=== PATIENT | female | born 1980 | race Caucasian/White ===

== ENCOUNTER 2024-03-30 08:18 | Outpatient (AMB) | payer BC, SELFPAY ==
--- NOTE | 2024-03-30 08:40 | MHC.OFFWIV ---
Intake Vital Signs 03/30/24 08:41 Height 5 ft 5 in Weight 151 lb BMI 25.1 BP 102/80 Blood Pressure Location Rt brachial Position Sitting Pulse 76 Pulse Source Pulse Oximeter Temp 98.3 F Temp Source Oral Pulse Oximetry (%) 98 Oxygen Delivery Method Room Air Intake Visit Reasons: rt ear pain Intake Note: pt c/o RT ear pain. Started yesterday morning. Went swimming Wednesday Patient Tobacco Use Status: Never used Tobacco Allergies No Known Allergies Allergy (Verified 03/30/24 08:44) Do you need a note to return to daycare/school/sports/work: No HPI HPI Comments History of Present Illness Details Patient is a 43-year-old female complaining of right ear pain for the last 3 days. She states the pain radiates to her nondenominational and down to her jaw. She states she did go swimming 3 days ago and she thinks she has an infection. She denies any fevers or change in her hearing PFSH Social History Patient Tobacco Use Status: Never used Tobacco Review of Systems Const All systems reviewed & are unremarkable except as noted in HPI and below Physical Exam Vital Signs: Last Vital Signs Temp 98.3 F 03/30/24 08:41 Pulse 76 03/30/24 08:41 BP 102/80 03/30/24 08:41 Pulse Ox 98 03/30/24 08:41 Oxygen Delivery Method Room Air 03/30/24 08:41 BMI result Body Mass Index 25.1 Const General: cooperative, healthy appearing, comfortable and no acute distress Orientation/consciousness: patient oriented x3 HEENT Head: Yes normal to inspection Ears: hearing grossly normal bilaterally, TM normal on the left, mastoids normal on the right not edematous, nontender and no erythema, Abnormal EAC present (right) erythema on the right, edema on the right, EAC tenderness on the right and otic discharge bloody and purulent (scant) on the right and unable to visualize TM on the right General nose exam: Normal external nose present Face and sinus: Yes normal facial exam Resp Effort & Inspection: normal respiratory effort and able to speak in complete sentences Neuro General: patient oriented x3 Assessment & Plan Assessment & Plan (1) Otitis externa: Code(s): H60.90 - Unspecified otitis externa, unspecified ear Qualifiers: Otitis externa type: swimmer's ear Chronicity: acute Laterality: right Qualified Code(s): H60.331 - Swimmer's ear, right ear Plan: Sent polymyxin B drops to pharmacy, recommended she not submerge her head in water until the infection is cleared and she has been using the drops. Plan See above Medications: New [id number]-[id number]-JP 3.5-10,000-1 mg/mL-unit/mL-% after using drops, lie with affected ear upward x 5 mins 4 drps otic (ear) right TID 7 days 10 mL 0RF Coding Level of Care Code New Pt Level 3 (84002) Diagnoses Acute swimmer's ear of right side H60.331 Otitis externa type: swimmer's ear Chronicity: acute Laterality: right
[2024-03-30 08:41] VITALS: BP 102/80; PULSE 76; TEMP 36.8; O2SAT 98; BMI 25.1
== END 2024-03-30 09:13 | disposition home or self-care (01) ==
PROVIDERS: Visit Provider Physician Assistant
DX: H60.331 Swimmer's ear, right ear (principal)
CPT/HCPCS: 99203

== ENCOUNTER 2024-04-01 07:43 | Emergency (ER) | payer BC, SELFPAY ==
[2024-04-01 08:03] VITALS: BP 131/95; PULSE 72; RESP 16; TEMP 36.4; O2SAT 97; BMI 25.7
--- NOTE | 2024-04-01 08:37 | ED.EAR ---
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 Told to come in as it spread to other ear. She has some pain behind the ear. MD Complaint: ear pain and ear discharge Location: bilateral Duration: constant Severity: moderate Relieving factors: nothing Exacerbating factors: palpation Context: recent swimming Discharge from ear: yes - purulent Associated symptoms ear: decreased hearing, external ear tenderness and ear swelling Treatment prior to arrival: eardrops Related Data Home Medications ?Medication ?Instructions ?Recorded ?Confirmed cetirizine 10 mg capsule (All Day 10 mg PO DAILY 03/30/24 Allergy (cetirizine)) omeprazole 20 mg capsule,delayed 20 mg PO DAILY 03/30/24 release Previous Rx's ?Medication ?Instructions ?Recorded feoafdmg-rlobsifgm-bvqhbeynn 3.5 4 drp otic (ear) right TID 7 days 03/30/24 mg-10,000 unit/mL-1 % ear #10 mL drops,susp cephalexin 500 mg capsule 500 mg PO QID 7 days #28 caps 04/01/24 fluconazole 150 mg tablet 150 mg PO Q3D 2 doses #2 tabs 04/01/24 ofloxacin 0.3 % ear drops 10 drp otic (ears) DAILY 7 days #5 04/01/24 mL Allergies Allergy/AdvReac Type Severity Reaction Status Date / Time No Known Allergies Allergy Verified 04/01/24 08:05 Review of Systems Review of Systems: Constitutional : No Fever, No Chills, No Fatigue ENT/Mouth : No sore throat, No Rhinorrhea, pos ear pain, pos discharge from ears Eyes: No Eye Pain, No Swelling, No Redness Cardiovascular : No Chest Pain, No SOB, No Dyspnea on Exertion Respiratory : No Cough, No Sputum Gastrointestinal : No Nausea, No Vomiting, No Diarrhea, No abdominal Pain Musculoskeletal : No joint pain, No Myalgias, No Joint Swelling Skin : No Skin Lesions, No rash Neuro : No Weakness, No Numbness, No Dizziness, no headache All other systems reviewed and are negative [facility] Past Medical History Source: old records reviewed Medical History (Updated 04/01/24 @ 08:55 by Milena Navarro DO) Otitis externa Social History Social History Patient Tobacco Use Status: Never used Tobacco Advance Directives: No Advance Directives Information Provided: No Physical Exam Vital Signs: Vital Signs: Last Vital Signs Temp 97.6 F 04/01/24 08:03 Pulse 72 04/01/24 08:03 Resp 16 04/01/24 08:03 BP 131/95 H 04/01/24 08:03 Pulse Ox 97 04/01/24 08:03 O2 Del Method Room Air 04/01/24 08:03 BMI result Body Mass Index 25.7 Appearance: Alert. Oriented X3. No acute distress. Eyes: Pupils equal, round and reactive to light. ENT: Pharynx normal. no mastoid ttp on either side, mild external redness and pinna swelling both canals moderate swelling yellow drainage erythema and ttp. TM intact Neck: Normal inspection. Neck supple. CVS: Pulses normal. Respiratory: No respiratory distress. Abdomen: Soft and non-tender. Skin: Skin warm and dry. Normal skin color. Extremities: No lower extremity edema. Neuro: Oriented X 3. No motor deficit. No sensory deficit. Medical Decision Making Medical Decision Making MDM Narrative: 43 yo female with no sig PMH currently here with worsening external otitis and start of external ear swelling - no signs of mastoid ttp or deeper space infection. 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 I am going to start on ofloxacin drops and cephalexin she is going to call tomorrow knowing she might have to switch to oral levofloxacin. She is not toxic has no signs of [employer] involvement. Differential Diagnosis Differential Diagnoses: The differential diagnosis associated with the presentation includes external OM, pseudomas infection Admission/Observation Consideration of admission/observation: Escalation of care including admission/observation considered not toxic can be managed with outpatient oral regimen External Record Review External record reviewed: Office record Prescription Management I considered prescription management with: Antibiotic and Other Discharge Plan Discharge Clinical Impression: Otitis externa Patient Disposition: Home, Self-Care Instructions: Otitis Externa (ED) Additional Instructions: STOP TAKING THE NEOMYCIN, NO WATER IN THE EARS UNTIL FULLY CLEARED UP call tomorrow by 4pm if you feel no improvement. return for worsening pain, fevers, severe headache, confusion or any other concerns start antibiotic this morning and drops this morning. Prescriptions: New ofloxacin 0.3 % drops 10 drp otic (ears) DAILY 7 Days Qty: 5 0RF cephalexin 500 mg capsule 500 mg PO QID 7 Days Qty: 28 0RF fluconazole 150 mg tablet 150 mg PO Q3D Qty: 2 0RF Rx Instructions: may repeat second dose 72 hrs after first dose if symptoms persist No Action omeprazole 20 mg capsule,delayed release(DR/EC) 20 mg PO DAILY All Day Allergy (cetirizine) 10 mg capsule 10 mg PO DAILY [id number]-igzwykcqx-FM 3.5-10,000-1 mg/mL-unit/mL-% drops,suspension 4 drp otic (ear) right TID 7 Days Qty: 10 0RF Rx Instructions: after using drops, lie with affected ear upward x 5 mins Print Language: Indonesian
[2024-04-01 08:47] VITALS: BP 131/95; PULSE 72; RESP 16; TEMP 36.4; O2SAT 97
== END 2024-04-01 08:48 | disposition home or self-care (01) ==
PROVIDERS: Emergency Provider Emergency Medicine
DX: H60.93 Unspecified otitis externa, bilateral (principal)
CPT/HCPCS: 99282; 99283